=== PATIENT | female | born 1960 | race Caucasian/White ===

== ENCOUNTER 2016-05-11 15:22 | Emergency (ER) | payer OTHER | END 2016-05-11 15:55 | disposition home or self-care (01) | LOC: ER 15:22 | DX: S93.401A Sprain of unspecified ligament of right ankle, initial encounter (principal); X50.1XXA Overexertion from prolonged static or awkward postures, initial encounter; Z79.899 Other long term (current) drug therapy; Z88.0 Allergy status to penicillin ==

== ENCOUNTER 2016-06-11 09:30 | Emergency (ER) | payer OTHER | END 2016-06-11 10:38 | disposition home or self-care (01) | LOC: ER 09:30 | DX: M10.9 Gout, unspecified (principal); I10 Essential (primary) hypertension; Z90.710 Acquired absence of both cervix and uterus; Z79.899 Other long term (current) drug therapy; Z88.0 Allergy status to penicillin | CPT/HCPCS: 36415 ==

== ENCOUNTER 2016-06-24 14:43 | Emergency (ER) | payer OTHER | END 2016-06-24 17:30 | disposition home or self-care (01) | LOC: ER 14:43 | DX: M10.9 Gout, unspecified (principal); I10 Essential (primary) hypertension; Z90.710 Acquired absence of both cervix and uterus; Z79.899 Other long term (current) drug therapy; Z88.0 Allergy status to penicillin ==

== ENCOUNTER 2016-07-02 12:26 | Emergency (ER) | payer OTHER | END 2016-07-02 13:20 | disposition home or self-care (01) | LOC: ER 12:26 | DX: R23.3 Spontaneous ecchymoses (principal); I10 Essential (primary) hypertension; Z90.710 Acquired absence of both cervix and uterus; Z79.899 Other long term (current) drug therapy; Z88.0 Allergy status to penicillin ==